=== PATIENT | female | born 1985 ===

== ENCOUNTER 2024-11-20 13:13 | Emergency (ER) | payer OTHER, SELFPAY ==
[2024-11-20 13:54] VITALS: BP 164/105; PULSE 82; RESP 16; TEMP 36.7; O2SAT 100; BMI 29.3
--- NOTE | 2024-11-20 13:55 | ED.EXTPRO ---
HPI - Extremity Problem General Chief complaint: General Medical Stated complaint: check for std, R arm pain Time Seen by Provider: 11/20/24 13:56 Source: patient and old records reviewed Mode of arrival: ambulatory Limitations: no limitations History of Present Illness ED Provider: TRACE COLMENARES Narrative: 39 yo female with no PMH here with c/o R shoulder pain for years she is R hand dominant and reports she always due to her job and lifting has shoulder pain and it goes down to the R arm. No numbness or weakness. 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 She wants STI testing due to sexual encounter feels something is off. No concern for wants STI medications. MD Complaint: joint pain Onset (ago): year(s) Pain Consistency: intermittent Location: right and upper extremity Quality: aching Radiation: distal Relieving factors: immobilization Exacerbating factors: range of motion and palpation Associated symptoms: other Context: other Related Data Previous Rx's ?Medication ?Instructions ?Recorded cyclobenzaprine 10 mg tablet 10 mg PO TID PRN muscle spasm #20 11/20/24 tabs doxycycline hyclate 100 mg capsule 100 mg PO BID 7 days #13 caps 11/20/24 lidocaine 5 % topical patch 1 patch topical DAILY #30 ea 11/20/24 mupirocin 2 % topical ointment 1 appl topical BID 7 days #15 grams 11/20/24 ondansetron 4 mg disintegrating 4 mg PO Q8H PRN nausea and 11/20/24 tablet vomiting #20 tabs prednisone 20 mg tablet 40 mg (2 x 20 mg) PO DAILY 5 days 11/20/24 #10 tabs Allergies Allergy/AdvReac Type Severity Reaction Status Date / Time No Known Allergies Allergy Verified 11/20/24 13:57 Review of Systems Review of Systems: Constitutional : No Fever, No Chills ENT/Mouth : No Ear Pain, No Hoarseness, No sore throat Eyes: No Eye Pain, No Swelling, No Redness, No Foreign Body Cardiovascular : No Chest Pain, No SOB Respiratory : No Cough, No Dyspnea Gastrointestinal : No Nausea, No Vomiting, No Diarrhea, No abdominal Pain Genitourinary : No Dysuria, No Hematuria Musculoskeletal : positive joint pain, No Myalgias, No Joint Swelling Skin : No Skin lacerations, No rash, pos boil Neuro : No Weakness, No Numbness, No Loss of Consciousness, No Dizziness, No Headache All other systems reviewed and are negative [facility] Past Medical History Attestation statement: The following information was validated with the patient. Medical History (Updated 11/20/24 @ 14:09 by Devika Carolina DO) No pertinent past medical history Social History Social History (Updated 11/20/24 @ 14:09 by Devika Carolina DO) Patient Tobacco Use Status: Tobacco use Unknown Physical Exam Vital Signs: Appearance: Alert. Oriented X3. No acute distress. Eyes: Pupils equal, round and reactive to light. ENT: Pharynx normal. Neck: Normal inspection. Neck supple. CVS: Normal heart rate and rhythm. Pulses normal. Respiratory: No respiratory distress. Breath sounds normal. Abdomen: Soft and nontender. Skin: Skin warm and dry. Normal skin color. Normal skin turgor. Extremities: No lower extremity edema. 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 No motor deficit. No sensory deficit. CN2-12 intact Medical Decision Making Medical Decision Making [facility] Narrative: 39 yo female with two complaints 1. R shoulder MSK pain due to overuse at work - NV intact, no signs of infection start on prednisone/flexeril/lidocaine 2. STI treatmment and and what she describes as small boil or pimple - will obtain swabs, UA, UPT and start on doxy/mupirocin She is not toxic and has no systemic symptoms Differential Diagnosis Differential Diagnoses: The differential diagnosis associated with the presentation includes tendonitis, strain, sprain STI exposure boil Admission/Observation Consideration of admission/observation: Escalation of care including admission/observation considered can be managed as outpatient will call with positive labs she wants STI treatment regardless Lab Data [facility] Lab Attestation statement: I reviewed the patient's lab results. External Record Review External record reviewed: Outpatient record Prescription Management I considered prescription management with: Pain Medication, Antibiotic and Other Discharge Plan Discharge Clinical Impression: Strain of right shoulder, Right shoulder tendinitis Patient Disposition: Home, Self-Care Instructions: Muscle Strain (ED), Tendinitis (ED) Additional Instructions: return for any worsening symptoms or concerns you need to stay hydrated please follow up and find a primary care doctor On doxycycline, do not take pills immediately before going to bed and swallow pills with plenty of water. Avoid direct sunlight, iron, antacids, and Pepto Bismol. Call your provider if you develop new ringing in your ears, new problems hearing, dizziness, difficulty swallowing, rash, abdominal discomfort, nausea, or diarrhea.? take the prednisone on a full stomach as well. recheck blood pressure by Monday with your doctor Prescriptions: New cyclobenzaprine 10 mg tablet 10 mg PO TID PRN (Reason: muscle spasm) Qty: 20 0RF doxycycline hyclate 100 mg capsule 100 mg PO BID 7 Days Qty: 13 0RF prednisone 20 mg tablet 40 mg PO DAILY 5 Days Qty: 10 0RF lidocaine 5 % adhesive patch,medicated 1 patch topical DAILY Qty: 30 0RF Rx Instructions: leave on most painful area for up to 12 hrs mupirocin 2 % ointment 1 appl topical BID 7 Days Qty: 15 0RF ondansetron 4 mg tablet,disintegrating 4 mg PO Q8H PRN (Reason: nausea and vomiting) Qty: 20 0RF Stand Alone Forms: Work/School Release
[2024-11-20 14:27] LABS: Appearance Urine Clear; Color Urine Yellow; Glucose Urine UA Negative (Negative); Leukocyte Esterase Urine Negative (Negative); Nitrite Urine Negative (Negative); Specific Gravity - Urine 1.015 (1.005-1.025); Urine Blood Negative (Negative); Urine Ketones Negative (Negative); Urine Protein Trace mg/dL (Neg-Trace)
[2024-11-20] MEDS: cefTRIAXone sodium 500 MG, Lidocaine HCl 1 % MPF 1 ML IM (14:27)
[2024-11-20] MEDS: Doxycycline Monohydrate 100 MG CAPSULE PO (14:27)
[2024-11-20 14:29] LABS: UPreg QC Valid YES; Urine Pregnancy NEGATIVE (NEGATIVE)
[2024-11-20 15:27] VITALS: BP 164/105; PULSE 82; RESP 16; TEMP 36.7; O2SAT 100
[2024-11-20 16:30] LABS: CT PCR NOT DETECTED (Not Detect.); NG PCR NOT DETECTED (Not Detect.)
[2024-11-20 17:19] LABS: Bacterial Vaginosis PCR POSITIVE (Negative); Candida Group PCR NOT DETECTED (Not Detect); Candida glab krusei PCR NOT DETECTED (Not Detect); Trichomonas vaginalis PCR NOT DETECTED (Not Detect)
== END 2024-11-20 14:40 | disposition home or self-care (01) ==
PROVIDERS: Emergency Provider Emergency Medicine; PCP Nurse Practitioner Primary Care
DX: S46.911A Strain of unspecified muscle, fascia and tendon at shoulder and upper arm level, right arm, initial encounter (principal); X50.0XXA Overexertion from strenuous movement or load, initial encounter; M75.91 Shoulder lesion, unspecified, right shoulder; N76.0 Acute vaginitis; Y93.89 Activity, other specified; Y92.511 Restaurant or cafe as the place of occurrence of the external cause; Y99.0 Civilian activity done for income or pay; M25.511 Pain in right shoulder; Z86.14 Personal history of Methicillin resistant Staphylococcus aureus infection
CPT/HCPCS: 81003; 81025; 81515; 87491; 87591; 96372; 99282; 99284; J0696; J2003